=== PATIENT | male | born 1985 | race Caucasian/White ===

== ENCOUNTER → 2016-08-13 | Outpatient (CLI) | payer BC ==
[2016-08-13 09:47] LABS: CHLORIDE,CL 106 mmol/L (98-110); SODIUM,NA 139 mmol/L (136-146)
== END ==
LOC: MW.CHFP 08:32
PROVIDERS: ATTEND Student in an Organized Health Care Education/Training Program
DX: R68.89 Other general symptoms and signs (principal); R63.4 Abnormal weight loss; R61 Generalized hyperhidrosis
CPT/HCPCS: 36415; 80053; 84436; 84439; 84443; 84480; 84481; 85025; 85652

== ENCOUNTER → 2016-08-27 | Outpatient (CLI) | payer BC | LOC: MW.CHFP 13:41 | PROVIDERS: ATTEND Student in an Organized Health Care Education/Training Program | DX: R94.6 Abnormal results of thyroid function studies (principal) | CPT/HCPCS: 36415; 83520 ==

== ENCOUNTER → 2016-10-01 | Outpatient (CLI) | payer BC ==
--- NOTE | 2016-10-02 14:13 | NM ---
EXAMINATION: Nuclear medicine I-123 thyroid uptake and scan. CLINICAL HISTORY: Abnormal thyroid function studies. TECHNIQUE: The patient was given 343 mCi of iodine 123 orally and returned at 4 and 24 hours for thy roid uptake measurements. Imaging was performed at 4 hrs in multiple projections. FINDINGS: The images demonstrates homogenous tracer activity in both thyroid lobes. No cold or hot nodule by t his study. The 4 hours uptake value is 14.7 % (normal 4 - 20%) and 24 hour uptake is 26.2 %.(8 - 35 %). IMPRESSION: 1. No evidence of cold or hot nodules by this study. Normal appearing thyroid lobes. 2. Normal 4 and 24-hour iodine uptake values suggests euthyroidism.
== END ==
LOC: MW.NM 11:56
PROVIDERS: ATTEND Student in an Organized Health Care Education/Training Program
DX: R94.6 Abnormal results of thyroid function studies (principal)
CPT/HCPCS: 78014; A9516